=== PATIENT | male | born 1970 | race Caucasian/White ===

== ENCOUNTER 2024-08-22 11:47 | Emergency (ER) | payer OTHER ==
[~2024-08-22] VITALS: Ht 203.2 cm; Wt 131.5 kg
[~2024-08-22 11:47] MED LIST: KETOROLAC TROME10 MG PO
[2024-08-22 11:59] VITALS: PULSE 74; RESP 18; TEMP 98.1
[2024-08-22] MEDS: HYDROCODONE/APAP 7.5MG-325MG 1 EA TAB PO ONE (12:19)
[2024-08-22] MEDS ORDERED: METHOCARBAMOL750 MG PO (14:52)
[2024-08-22] MEDS ORDERED: CELEBREX100 MG PO (14:52)
[2024-08-22 14:59] VITALS: BP 148/88; PULSE 70; RESP 16; TEMP 98; O2SAT 100
== END 2024-08-22 15:00 | disposition home or self-care (01) ==
LOC: ER 12:01
DX: M54.50 Low back pain, unspecified (principal); M54.2 Cervicalgia; S09.90XA Unspecified injury of head, initial encounter; W01.0XXA Fall on same level from slipping, tripping and stumbling without subsequent striking against object, initial encounter; Y93.01 Activity, walking, marching and hiking; Y92.89 Other specified places as the place of occurrence of the external cause; H54.62 Unqualified visual loss, left eye, normal vision right eye
CPT/HCPCS: 70450; 72125; 72131; 99284